=== PATIENT | male | born 1960 | race Caucasian/White ===

== ENCOUNTER 2017-10-19 09:02 | Day surgery (SDC) | payer OTHER ==
[2017-10-19] MEDS ORDERED: PROPOFOL 80 ML (10:12)
[2017-10-19] MEDS ORDERED: LIDOCAINE 2% (SDV) 5 ML INJ (10:12)
== END 2017-10-19 11:45 | disposition home or self-care (01) ==
LOC: GIL 09:02
DX: Z12.11 Encounter for screening for malignant neoplasm of colon (principal); K63.5 Polyp of colon; K64.8 Other hemorrhoids
CPT/HCPCS: 45380; 88305